=== PATIENT | female | born 1975 | race Hispanic/Latino ===

== ENCOUNTER 2022-05-24 00:55 | Emergency (ER) | payer BC ==
[~2022-05-24] VITALS: Ht 154.9 cm; Wt 91.6 kg
[2022-05-24 01:28] LABS: APPEARANCE,URINE CLOUDY (CLEAR); BILIRUBIN,URINE NEGATIVE (NEGATIVE); COLOR,URINE LIGHT-YELLOW (YELLOW); GLUCOSE, URINE (UA) NEGATIVE (NEGATIVE); KETONES,URINE NEGATIVE (NEGATIVE); LEUKOCYTE ESTERASE ,URINE 500 Leu/uL (NEGATIVE); NITRATE,URINE NEGATIVE (NEGATIVE); OCCULT BLOOD,URINE SMALL (NEGATIVE); PH,URINE 5.5 (5.0-8.0); PROTEIN,URINE 30 mg/dL (NEGATIVE); UROBILINOGEN,URINE 0.2 mg/dL (0.2-1.0)
[2022-05-24] MEDS ORDERED: ONDANSETRON 4MG INJ IVP ONE (01:30)
[2022-05-24] MEDS ORDERED: FAMOTIDINE 20MG VIAL IV ONE (01:30)
[2022-05-24 01:32] LABS: MUCUS,URINE RARE LPF (None Seen); SQUAMOUS EPITHELIAL CELL,UR MOD /HPF (0-2); WBC,URINE TNTC /HPF (0-1)
[2022-05-24 01:33] LABS: HCG,QUALITATIVE URINE NEGATIVE (NEGATIVE)
[2022-05-24 01:41] LABS: BASOPHILS % (AUTO) 0.3 % (0.0-5.0); EOSINOPHILS % (AUTO) 0.5 % (0.0-8.0); HEMATOCRIT 40.4 % (36-48); LYMPHOCYTES % (AUTO) 13.9 % (21.0-51.0); MEAN CORPUSCULAR HEMOGLOBIN 29.4 pg (27.0-33.0); MEAN CORPUSCULAR HGB CONC 31.7 g/dL (32.0-36.0); MEAN CORPUSCULAR VOLUME 92.7 fL (79-99); MONOCYTES % (AUTO) 4.3 % (3.0-13.0); NEUTROPHILS % (AUTO) 80.2 % (40.0-77.0); PLATELET COUNT (AUTO) 314 K/uL (130-400); RED BLOOD CELL COUNT(AUTO) 4.36 MIL/uL (4.00-5.50); RED CELL DISTRIBUTION WIDTH 14.5 % (11.0-15.5); WHITE BLOOD COUNT (AUTO) 11.9 K/uL (4.8-10.8)
[2022-05-24 01:55] LABS: CREATININE 0.8 mg/dL (0.5-1.5); POTASSIUM 3.6 mmol/L (3.5-5.1)
[2022-05-24 01:59] LABS: ALBUMIN 3.8 g/dL (3.5-5.0); TOTAL PROTEIN, SERUM 8.6 g/dL (6.0-8.3)
[2022-05-24] MEDS ORDERED: MORPHINE 4 MG SYG IVP ONE (02:00)
[2022-05-24] MEDS ORDERED: CEFTRIAXONE 1G VIAL IVP ONE (02:00)
[2022-05-24] MEDS ORDERED: DICY20TA2 PO (03:43)
[2022-05-24] MEDS ORDERED: CEPH500B PO (03:50)
[2022-05-24 03:55] VITALS: BP 155/98
== END 2022-05-24 04:04 | disposition home or self-care (01) ==
LOC: EDH 00:55
DX: K80.70 Calculus of gallbladder and bile duct without cholecystitis without obstruction (principal); N39.0 Urinary tract infection, site not specified; I10 Essential (primary) hypertension
CPT/HCPCS: 99284; 96374; 96375; 76705; 84484; 80053; 83690; 85025; 87088; 81001; 81025; 36415; 93005; J3490; J0696; J2405; J2270